=== PATIENT | female | born 1985 | race Caucasian/White ===

== ENCOUNTER 2019-04-11 10:01 | Observation (INO) | payer MEDICAID ==
[~2019-04-11] VITALS: Ht 149.9 cm; Wt 90.7 kg
[2019-04-11] MEDS ORDERED: FERR325E14 PO (10:18)
[2019-04-11] MEDS ORDERED: PREN-380 PO (10:18)
[2019-04-11 10:48] VITALS: BP 120/74
== END 2019-04-11 14:05 | disposition home or self-care (01) ==
LOC: MLD 10:01
PROVIDERS: ADMIT Obstetrics & Gynecology; ATTEND Obstetrics & Gynecology
DX: O26.893 Other specified pregnancy related conditions, third trimester (principal); R10.9 Unspecified abdominal pain; Z3A.38 38 weeks gestation of pregnancy
CPT/HCPCS: 59025; 76805; 81000; G0378; Q0092

== ENCOUNTER 2019-04-18 17:44 | Inpatient (IN) | payer MEDICAID ==
[~2019-04-18] VITALS: Ht 149.9 cm; Wt 94.3 kg
[~2019-04-18 17:44] MED LIST: FERR325E14 PO; PREN-380 PO
[2019-04-18] MEDS ORDERED: OXYTOCIN 10 UNITS/ML VIAL IM SCH (19:25)
[2019-04-18] MEDS ORDERED: OXYTOCIN 20 UNITS in LACTATED RINGERS 1,000 ML IV SCH (19:25)
[2019-04-18] MEDS ORDERED: PROMETHAZINE 25 MG/ML VIAL IVP PRN (19:25)
[2019-04-18] MEDS ORDERED: CARBOPROST 250 MCG/ML AMP IM PRN (19:25)
[2019-04-18] MEDS ORDERED: METHYLERGONOVINE 0.2 MG/ML AMP IM PRN (19:25)
[2019-04-18] MEDS ORDERED: NALBUPHINE 10 MG/ML AMP IVP PRN (19:25)
[2019-04-18 20:06] VITALS: BP 107/53
[2019-04-18 20:12] LABS: BASOPHILS % (AUTO) 0.6 % (0.0-2.0); EOSINOPHILS # (AUTO) 0.1 K/uL (0-0.4); EOSINOPHILS % (AUTO) 1.8 % (0.0-4.0); HEMATOCRIT 35.6 % (36-48); HEMOGLOBIN 12.1 g/dL (12.0-16.0); LYMPHOCYTES # (AUTO) 1.5 K/uL (2.5-16.5); LYMPHOCYTES % (AUTO) 22.7 % (20.5-51.1); MEAN CORPUSCULAR HEMOGLOBIN 28 pg (27-31); MEAN CORPUSCULAR HGB CONC 34 g/dL (33-37); MEAN CORPUSCULAR VOLUME 83.7 fL (80-94); MONOCYTES # (AUTO) 0.4 K/uL (0.8-1.0); NEUTROPHILS # (AUTO) 4.7 K/uL (1.8-7.7); NEUTROPHILS % (AUTO) 68.9 % (42.2-75.2); PLATELET COUNT (AUTO) 171 K/uL (140-450); RED BLOOD CELL COUNT(AUTO) 4.26 MIL/uL (4.20-5.40); RED CELL DISTRIBUTION WIDTH 15.8 % (11.6-13.7); WHITE BLOOD COUNT (AUTO) 6.8 K/uL (4.8-10.8)
[2019-04-18 20:31] LABS: APPEARANCE,URINE CLEAR (CLEAR); BILIRUBIN,URINE NEGATIVE (NEGATIVE); BLOOD, URINE NEGATIVE (NEGATIVE); COLOR,URINE YELLOW (YELLOW); LEUKOCYTE ESTERASE ,URINE NEGATIVE (NEGATIVE); NITRITE, URINE NEGATIVE (NEGATIVE); UGLUCOSE NEGATIVE (NEGATIVE)
[2019-04-19] MEDS ORDERED: OXYTOCIN 20 UNITS/LR PREMIX 1,000 ML IV ONE (04:34)
[2019-04-19] MEDS: LACTATED RINGERS 1,000 ML IV SCH ×3 (05:45→21:39)
[2019-04-19 07:39] LABS: RAPID PLASMA REAGIN NON-REACTIVE (Non Reactiv)
[2019-04-20] MEDS ORDERED: NALBUPHINE 10 MG/ML AMP ONE ×2 (00:09→08:47)
[2019-04-20] MEDS ORDERED: PROMETHAZINE 25 MG/ML VIAL ONE ×2 (00:09→08:48)
[2019-04-20] MEDS: LACTATED RINGERS 1,000 ML IV SCH ×2 (06:53→09:39)
[2019-04-20] MEDS ORDERED: BUPIVACAINE 0.125%/NS PREMIX 250 ML ONE (09:20)
--- NOTE | 2019-04-20 09:26 | NUR ---
PATIENT HAS BEEN SCREENED AND CATEGORIZED LOW NUTRITION RISK. PATIENT WILL BE SEEN WITHIN 7 DAYS OF ADMISSION. 04/24/[address]
[2019-04-20] MEDS ORDERED: OXYTOCIN 10 UNITS/ML VIAL ONE (11:37)
[2019-04-20] MEDS ORDERED: LIDOCAINE MPF 2% 100 MG/5 ML VIAL INJ ONE (11:38)
[2019-04-20] MEDS ORDERED: OXYTOCIN 20 UNITS in LACTATED RINGERS 1,000 ML IV SCH (12:06)
[2019-04-20] MEDS ORDERED: IBUPROFEN 600 MG TAB PO PRN (12:10)
[2019-04-20] MEDS ORDERED: BISACODYL 5 MG TABEC PO PRN (12:10)
[2019-04-20] MEDS ORDERED: ACETAMINOPHEN 325 MG TAB PO PRN (12:10)
[2019-04-20] MEDS ORDERED: MEASLES, MUMPS, AND RUBELLA 1 VIAL SQVAC PRN (12:10)
[2019-04-21 08:23] LABS: BASOPHILS # (AUTO) 0.1 K/uL (0.00-0.22); BASOPHILS % (AUTO) 0.9 % (0.0-2.0); EOSINOPHILS # (AUTO) 0.1 K/uL (0-0.4); EOSINOPHILS % (AUTO) 1.4 % (0.0-4.0); HEMOGLOBIN 11.7 g/dL (12.0-16.0); LYMPHOCYTES # (AUTO) 1.6 K/uL (2.5-16.5); LYMPHOCYTES % (AUTO) 23.7 % (20.5-51.1); MEAN CORPUSCULAR HEMOGLOBIN 28 pg (27-31); MEAN CORPUSCULAR HGB CONC 33 g/dL (33-37); MEAN CORPUSCULAR VOLUME 83.4 fL (80-94); MONOCYTES # (AUTO) 0.4 K/uL (0.8-1.0); MONOCYTES % (AUTO) 5.6 % (1.7-9.3); NEUTROPHILS # (AUTO) 4.7 K/uL (1.8-7.7); NEUTROPHILS % (AUTO) 68.4 % (42.2-75.2); PLATELET COUNT (AUTO) 154 K/uL (140-450); RED CELL DISTRIBUTION WIDTH 15.7 % (11.6-13.7); WHITE BLOOD COUNT (AUTO) 6.9 K/uL (4.8-10.8)
[2019-04-21] MEDS ORDERED: NALBUPHINE 10 MG/ML AMP ONE (18:49)
[2019-04-22] MEDS ORDERED: MEASLES, MUMPS, AND RUBELLA 1 VIAL SQVAC PRN (00:05)
[2019-04-22] MEDS ORDERED: FERR325E14 PO (13:10)
[2019-04-22] MEDS ORDERED: ACET-9800 PO (13:12)
== END 2019-04-22 15:45 | disposition home or self-care (01) | DRG 560 ==
LOC: MLD 17:44 → MFCC 04-20 21:00
PROVIDERS: ADMIT Obstetrics & Gynecology; ATTEND Obstetrics & Gynecology
PROC: 10E0XZZ Delivery of Products of Conception, External Approach (ICD-10-PCS; principal; 2019-04-20)
PROC: 3E033VJ Introduction of Other Hormone into Peripheral Vein, Percutaneous Approach (ICD-10-PCS; 2019-04-20)
PROC: 00HU33Z Insertion of Infusion Device into Spinal Canal, Percutaneous Approach (ICD-10-PCS; 2019-04-20)
PROC: 3E0R3BZ Introduction of Anesthetic Agent into Spinal Canal, Percutaneous Approach (ICD-10-PCS; 2019-04-20)
DX: O40.3XX0 Polyhydramnios, third trimester, not applicable or unspecified (principal); O69.89X0 Labor and delivery complicated by other cord complications, not applicable or unspecified; Z37.0 Single live birth; Z3A.39 39 weeks gestation of pregnancy
CPT/HCPCS: 36415; 51702; 59409; 76815; 81003; 85025; 86592; 86886; 86900; 86901; 87340; 90707; 90715; J2001; J2300; J2550; J2590; J3490; J7120; Q0092

== ENCOUNTER 2023-09-25 08:57 | Emergency (ER) | payer SELFPAY ==
[~2023-09-25] VITALS: Ht 149.9 cm; Wt 94.3 kg
[~2023-09-25 08:57] MED LIST changes: +ACET-9800 PO
[2023-09-25 09:08] VITALS: BP 124/74; PULSE 78; RESP 16; TEMP 97.9; O2SAT 98
[2023-09-25 09:24] VITALS: TEMP 97.9
[2023-09-25 09:35] LABS: BASOPHILS # (AUTO) 0.1 K/uL (0.00-0.22); BASOPHILS % (AUTO) 0.9 % (0.0-2.0); EOSINOPHILS # (AUTO) 0.2 K/uL (0-0.4); EOSINOPHILS % (AUTO) 2.1 % (0.0-4.0); HEMATOCRIT 37.6 % (36-48); HEMOGLOBIN 12.9 g/dL (12.0-16.0); LYMPHOCYTES # (AUTO) 2.1 K/uL (2.5-16.5); LYMPHOCYTES % (AUTO) 25.2 % (20.5-51.1); MEAN CORPUSCULAR HEMOGLOBIN 29 pg (27-31); MEAN CORPUSCULAR HGB CONC 34 g/dL (33-37); MONOCYTES # (AUTO) 0.4 K/uL (0.8-1.0); MONOCYTES % (AUTO) 4.9 % (1.7-9.3); NEUTROPHILS # (AUTO) 5.6 K/uL (1.8-7.7); NEUTROPHILS % (AUTO) 66.9 % (42.2-75.2); PLATELET COUNT (AUTO) 236 K/uL (140-450); RED BLOOD CELL COUNT(AUTO) 4.47 MIL/uL (4.20-5.40); RED CELL DISTRIBUTION WIDTH 14.6 % (11.6-13.7); WHITE BLOOD COUNT (AUTO) 8.4 K/uL (4.8-10.8)
[2023-09-25 09:36] LABS: APPEARANCE,URINE CLEAR (CLEAR); BILIRUBIN,URINE NEGATIVE (NEGATIVE); BLOOD, URINE 1+ (NEGATIVE); COLOR,URINE YELLOW (YELLOW); LEUKOCYTE ESTERASE ,URINE NEGATIVE (NEGATIVE); NITRITE, URINE NEGATIVE (NEGATIVE); PROTEIN,URINE NEGATIVE (NEGATIVE); UGLUCOSE NEGATIVE (NEGATIVE); UROBILINOGEN,URINE 0.2 EU/dL (0.2 - 1)
[2023-09-25 09:39] VITALS: O2SAT 99
[2023-09-25 09:40] LABS: BACTERIA,URINE OCCASSIONAL /HPF (None Seen); RBC,URINE 0-5 /HPF (0-5); SQUAMOUS EPITHELIAL CELL,UR 0-3 (FEW) /LPF (0-3 (FEW)); WBC,URINE 0-5 /HPF (0-5)
[2023-09-25 15:18] VITALS: BP 115/70; PULSE 74; RESP 17; O2SAT 98
== END 2023-09-25 15:18 | disposition home or self-care (01) ==
LOC: MED 08:57
DX: O20.0 Threatened abortion (principal); Z3A.12 12 weeks gestation of pregnancy; Z79.899 Other long term (current) drug therapy
CPT/HCPCS: 36415; 76817; 81001; 81025; 84702; 85025; 99284; Q0092